=== PATIENT | female | born 1970 | race Two or more races ===

== ENCOUNTER 2019-04-26 15:45 | Outpatient (CLI) | payer OTHER ==
[2019-04-27] MEDS ORDERED: DICLOFENAC SODI75 MG PO (08:31)
[2019-04-27] MEDS ORDERED: RECTICARE30 GM TOP (08:31)
== END 2019-04-26 15:54 | disposition home or self-care (01) ==
LOC: RAD 15:45
DX: M79.642 Pain in left hand (principal); M79.641 Pain in right hand

== ENCOUNTER 2020-02-21 14:32 | Outpatient (CLI) | payer OTHER ==
[~2020-02-21 14:32] MED LIST: DICLOFENAC SODI75 MG PO; RECTICARE30 GM TOP
== END 2020-02-21 17:24 | disposition home or self-care (01) ==
LOC: OFIC 805 14:32
PROVIDERS: ATTEND Otolaryngology Otology & Neurotology
DX: H90.3 Sensorineural hearing loss, bilateral (principal); H61.21 Impacted cerumen, right ear; H92.01 Otalgia, right ear

== ENCOUNTER 2023-02-19 13:54 | Emergency (ER) | payer OTHER ==
[~2023-02-19] VITALS: Ht 165.1 cm; Wt 66.7 kg
[~2023-02-19 13:54] MED LIST changes: +CLIMARA1 EAC2 TD; +ENDOMETRIN100 MG VAG; +SYNTHROID100 MCG PO
[2023-02-19] MEDS ORDERED: ZESTRIL10 M1 PO (14:26)
[2023-02-19] MEDS ORDERED: NORFLEX100MG PO (15:43)
[2023-02-19] MEDS ORDERED: DICLOFENAC SODI75 MG PO (15:43)
== END 2023-02-19 15:48 | disposition home or self-care (01) ==
LOC: ER 13:54
DX: S13.4XXA Sprain of ligaments of cervical spine, initial encounter (principal); V43.52XA Car driver injured in collision with other type car in traffic accident, initial encounter; Y93.I9 Activity, other involving external motion; Y92.413 State road as the place of occurrence of the external cause